=== PATIENT | male | born 1980 | race Caucasian/White ===

== ENCOUNTER 2019-07-17 19:10 | Emergency (ER) | payer SELFPAY ==
[~2019-07-17] VITALS: Ht 198.1 cm; Wt 124.7 kg
[2019-07-17] MEDS ORDERED: TR1C15 TP (20:06)
[2019-07-17] MEDS ORDERED: CLOT15CR5 TP (20:06)
[2019-07-17] MEDS ORDERED: PERM60CR4 TP (20:06)
--- NOTE | 2019-07-17 20:06 | ED Integumentary General ---
General Chief Complaint: Skin/Wound Problems Stated Complaint: RASH/CYSTS Nursing Triage Note: PATIENT STATES THAT HE HAS BEEN DEALING WITH RASHES ON VARIOUS LOCATIONS ON HIS BODY FOR A COUPLE MONTHS. HE WAS SEEN AT [facility] AND GIVEN ANTIBIOTICS. THEY DID NOT HELP. Source: patient Exam Limitations: no limitations History of Present Illness Date Seen by Provider: Jul 17, 2019 Time Seen by Provider: 20:02 Initial Comments To ER with reports of rashes. He was seen at [facility] and given Keflex and Bactrim with no improvement. He has this between his toes, the left buttocks, multiple sores on the right buttocks, anterior lower abdomen. He states they're very itchy. Timing/Duration: just prior to arrival Severity: moderate Associated Symptoms: denies symptoms Allergies and Home Medications Patient Home Medication List Home Medication List Reviewed: Yes Review of Systems Review of Systems Constitutional: see HPI EENTM: see HPI Respiratory: no symptoms reported Cardiovascular: no symptoms reported Genitourinary: no symptoms reported Musculoskeletal: see HPI Skin: see HPI Psychiatric/Neurological: No Symptoms Reported Endocrine: No Symptoms Reported Past [place]-[id number]-Ggtzqb Hx Patient Social History Alcohol Use: Occasionally Uses Recreational Drug Use: Yes (MARIJUANA) Smoking Status: Never a Smoker 2nd Hand Smoke Exposure: No Recent Foreign Travel: No Contact w/Someone Who Travel: No Recent Infectious Disease Expo: No Recent Hopitalizations: No Seasonal Allergies Seasonal Allergies: No Past Medical History Surgeries: Yes Abdominal Respiratory: No Cardiac: No Genitourinary: No Gastrointestinal: No Endocrine: No HEENT: No Cancer: No Psychosocial: No Integumentary: No Blood Disorders: No Physical Exam Vital Signs Vital Signs - First Documented 07/17/19 19:50 Temp 99.3 Pulse 110 Resp 18 B/P (MAP) 139/88 (105) Pulse Ox 98 Capillary Refill : Less Than 3 Seconds General Appearance: WD/WN, no apparent distress HEENT: PERRL/EOMI, normal ENT inspection Neurologic/Psychiatric: alert, normal mood/affect, abnormal cerebellar tests Skin: normal color, warm/dry, other (sores between the toes, around the waistline, left buttock is diffusely erythematous and excoriated) Progress/Results/Core Measures Results/Orders Vital Signs/I&O 07/17/19 19:50 Temp 99.3 Pulse 110 Resp 18 B/P (MAP) 139/88 (105) Pulse Ox 98 Blood Pressure Mean: 105 Departure Communication (Admissions) Has rhythmic facial movements, unable to sit still moving arms and legs constantly is under the influence of substances. Impression Primary Impression: Rash and nonspecific skin eruption Disposition: HOME, SELF-CARE Condition: Stable Departure-Patient Inst. Decision time for Depature: 20:04 Referrals: NO,LOCAL PHYSICIAN (PCP/Family) Primary Care Physician Patient Instructions: Skin Rash Add. Discharge Instructions: 1. Return if any concerns 2. Medication as directed 3.All discharge instructions reviewed with patient and/or family. Voiced understanding. Scripts Clotrimazole (Clotrimazole) 15 Gm Cream..g. 15 GM TP BID, #14 TUBE Prov: CHERRI TAN APRN 07/17/19 Triamcinolone Acet (Triamcinolone Acetonide 0.1% Cream) 15 Gm Cr 15 GM TP BID, #2 TUBE Topically to the affected area twice daily for 5 days Prov: CHERRI TAN APRN 07/17/19 Permethrin (Permethrin) 60 Gm Cream..g. 60 GM TP ONCE, #1 TUBE Prov: CHERRI TAN APRN 07/17/19 CHERRI TAN APRN Jul 17, 2019 20:06
[2019-07-17 20:10] VITALS: BP 139/88
== END 2019-07-17 20:13 | disposition home or self-care (01) ==
LOC: ER 19:12
DX: R21 Rash and other nonspecific skin eruption (principal)
CPT/HCPCS: 99282